=== PATIENT | male | born 1985 | race Caucasian/White ===

== ENCOUNTER 2018-12-06 08:55 | Emergency (ER) | payer OTHER ==
[2018-12-06 08:59] VITALS: O2SAT 98
[2018-12-06 09:00] VITALS: PULSE 82; RESP 20; TEMP 97
--- NOTE | 2018-12-06 09:12 | ED PDOC ---
HPI: Psych/Substance Abuse Time Seen by Provider: 12/06/18 09:04 Chief Complaint (Nursing): Psychiatric Evaluation Chief Complaint (Provider): Psychiatric evaluation History Per: Patient History/Exam Limitations: no limitations Current Symptoms Are (Timing): Still Present Modifying Factor(s): None Associated Symptoms: denies: Suicidal Thoughts, Suicidal Plan Additional History Per: Patient Additional Complaint(s): 33yo male, no past medical history, brought to ER by EMS for a psychiatric evaluation. Patient states he has been increasingly stressed, and has had "different thoughts in my mind", prompting him to call EMS. Patient otherwise denies any psychiatric history, denies any suicidal or homicidal ideation; p atient denies any visual or auditory hallucinations. He also denies any fever, chills, chest pain, shortness of breath, abdominal pain, headache, and offers no medical complaints. Patient also denies any alcohol or drug usage. PMD: None provided Past Medical History Reviewed: Historical Data, Nursing Documentation, Vital Signs Vital Signs: Last Vital Signs Temp 97 F L 12/06/18 08:57 Pulse 82 12/06/18 08:57 Resp 20 12/06/18 08:57 BP 134/78 12/06/18 08:57 Pulse Ox 98 12/06/18 08:57 - Medical History PMH: No Chronic Diseases - Surgical History Surgical History: No Surg Hx - Family History Family History: States: No Known Family Hx - Social History Current smoker - smoking cessation education provided: No Alcohol: None Drugs: Denies - Allergies Allergies/Adverse Reactions: Allergies Allergy/AdvReac Type Severity Reaction Status Date / Time No Known Allergies Allergy Verified 12/06/18 08:56 Review of Systems ROS Statement: Except As Marked, All Systems Reviewed And Found Negative Constitutional: Negative for: Fever, Chills Cardiovascular: Negative for: Chest Pain Respiratory: Negative for: Shortness of Breath Gastrointestinal: Negative for: Abdominal Pain Neurological: Negative for: Headache Psych: Negative for: Suicidal ideation Physical Exam - Reviewed Nursing Documentation Reviewed: Yes Vital Signs Reviewed: Yes - Physical Exam Appears: Positive for: Non-toxic, No Acute Distress Head Exam: Positive for: ATRAUMATIC, NORMAL INSPECTION, NORMOCEPHALIC Skin: Positive for: Normal Color Eye Exam: Positive for: Normal appearance, EOMI, PERRL Neck: Positive for: Normal, Supple Cardiovascular/Chest: Positive for: Regular Rate, Rhythm Respiratory: Positive for: Normal Breath Sounds Pulses-Radial (L): 2+ Pulses-Radial (R): 2+ Gastrointestinal/Abdominal: Positive for: Soft. Negative for: Tenderness Back: Positive for: Normal Inspection. Negative for: L CVA Tenderness, R CVA Tenderness Extremity: Positive for: Normal ROM, Other (no lacerations noted to wrists). Negative for: Tenderness Neurologic/Psych: Positive for: Alert, Oriented, Mood/Affect (answers questions appropriately, normal affect). Negative for: Motor/Sensory Deficits - ECG O2 Sat by Pulse Oximetry: 98 (RA) Pulse Ox Interpretation: Normal - Progress ED Course And Treament: 1027: Stable. AAOx3. Crisis saw pt. Does not meet criteria for admit. Fu outpt. Medical Decision Making Medical Decision Making: Impression: Psychiatric evaluation Plan: -- Patient with well physical exam -- Crisis evaluation Scribe Attestation: Documented by Gloria Terrell acting as a scribe for Koffi Cheng MD. Provider Attestation: All medical record entries made by the Scribe were at my direction and personally dictated by me. I have reviewed the chart and agree that the record accurately reflects my personal performance of the history, physical exam, medical decision making, and the department course for this patient. I have also personally directed, reviewed, and agree with the discharge instructions and disposition. Disposition - Clinical Impression Clinical Impression: Adjustment disorder - Patient ED Disposition Is Patient to be Admitted: No Counseled Patient/Family Regarding: Diagnosis, Need For Followup - Disposition Referrals: [facility] [Outside] - 12/07/18 Disposition: Routine/Home Disposition Time: 10:29 Condition: STABLE Additional Instructions: Return if not better in 3 days. Instructions: Adjustment Disorder
[2018-12-06 11:02] VITALS: BP 130/76
== END 2018-12-06 10:30 | disposition home or self-care (01) ==
LOC: H.ER 08:55
DX: F43.20 Adjustment disorder, unspecified (principal); Z00.8 Encounter for other general examination